=== PATIENT | male | born 1950 | race Caucasian/White ===

== ENCOUNTER 2018-04-09 18:51 | Outpatient (CLI) | payer SELFPAY | END 2018-04-09 18:52 | disposition critical access hospital (66) | LOC: EMS 18:51 | PROVIDERS: ATTEND Surgery | DX: R53.83 Other fatigue (principal); M54.9 Dorsalgia, unspecified | CPT/HCPCS: A0425; A0429 ==

== ENCOUNTER 2018-04-09 19:29 | Emergency (ER) | payer SELFPAY ==
--- NOTE | 2018-04-09 20:32 | ED Physician Documentation ---
PD HPI CHEST PAIN - Stated complaint Stated Complaint: BACK PAIN/WEAKNESS - Chief complaint Chief Complaint: General - History obtained from History obtained from: Patient - History of Present Illness Timing - onset: How many weeks ago (has had pain upper back for few weeks on and off. Worse the past 2 days in scapular area. Seen by PMD and referred to ER to evaluate for cardiac and lung.) Timing - onset during: No: Exertion Timing - details: Gradual onset, Waxing and waning Quality: Aching, Sharp Location: Other (left scapular area). No: Substernal, Left chest Radiation: Back Improved by: No: Rest Worsened by: Movement. No: Exertion, Eating Associated symptoms: Shortness of air. No: Diaphoresis, Nausea, Feeling faint / dizzy, General Weakness, Palpitations Similar symptoms before: Has not had sx before Recently seen: Clinic Review of Systems Constitutional: denies: Fever, Chills, Myalgias Nose: denies: Rhinorrhea / runny nose, Congestion Throat: denies: Sore throat Cardiac: denies: Chest pain / pressure (just in back), Palpitations Respiratory: denies: Dyspnea, Cough GI: denies: Abdominal Pain, Nausea, Vomiting Musculoskeletal: denies: Extremity pain, Extremity swelling Neurologic: denies: Generalized weakness, Focal weakness, Numbness, Near syncope PD PAST MEDICAL HISTORY - Past Medical History Past Medical History: Yes Cardiovascular: Hypertension - Past Surgical History Past Surgical History: Yes General: Appendectomy Ortho: Spine surgery - Present Medications Home Medications: Ambulatory Orders Medication Instructions Recorded Confirmed HYDROcod/ACETAM 5/325 [[place] 5/325] 1 tab PO Q6H PRN #15 tablet 04/09/18 Methocarbamol [Robaxin] 500 mg PO Q6H PRN #25 tablet 04/09/18 Naproxen [Naprosyn] 500 mg PO BID PRN #20 tablet 04/09/18 - Allergies Allergies/Adverse Reactions: Allergies Allergy/AdvReac Type Severity Reaction Status Date / Time No Known Drug Allergies Allergy Verified 04/09/18 19:43 - Social History Does the pt smoke?: No Smoking Status: Never smoker - Family History Family history: reports: CAD PD ED PE NORMAL - Vitals Vital signs reviewed: Yes - General General: Alert and oriented X 3, Well developed/nourished, Other (appears in pain upper back/ somewhat guarded ROM back and shoulder. ) - HEENT HEENT: Ears normal, Pharynx benign - Neck Neck: Supple, no meningeal sign, No bony TTP, No adenopathy - Cardiac Cardiac: RRR, No murmur - Respiratory Respiratory: Clear bilaterally - Abdomen Abdomen: Normal bowel sounds, Soft, Non tender - Male Male : Deferred - Rectal Rectal: Deferred - Back Back: No CVA TTP, No spinal TTP (has tender spot in muscle left medial scapular area. ) - Derm Derm: Normal color, Warm and dry - Extremities Extremities: No deformity, No tenderness to palpate, No edema, No calf tenderness / cord - Neuro Neuro: Alert and oriented X 3, No motor deficit, Normal speech Eye Opening: Spontaneous Motor: Obeys Commands Verbal: Oriented GCS Score: 15 Results - Vitals Vitals: Vital Signs - 24 hr 04/09/18 04/09/18 04/09/18 19:42 21:18 22:25 Heart Rate 101 H 92 90 Respiratory 20 20 18 Rate Blood Pressure 141/83 H 127/46 L 111/87 H O2 Saturation 93 92 97 04/09/18 23:00 Heart Rate 84 Respiratory 18 Rate Blood Pressure 140/95 H O2 Saturation 96 Oxygen O2 Source Room air - EKG (time done) 19:37 Rate: Rate (enter#) (105) Rhythm: Sinus tachycardia [place]: Normal Intervals: Normal DC QRS: Normal Ischemia: Normal ST segments. No: ST elevation c/w ischemia, ST depression - Labs Labs: Laboratory Tests 04/09/18 04/09/18 04/09/18 21:26 21:26 21:26 WBC 7.5 RBC 4.67 L Hgb 14.7 Hct 42.6 MCV 91.1 MCH 31.4 H MCHC 34.5 RDW 13.3 Plt Count 321 MPV 7.6 Neut # (Auto) 5.0 Lymph # (Auto) 1.5 [place] # (Auto) 0.9 Eos # (Auto) 0.1 Baso # (Auto) 0.1 Absolute Nucleated RBC 0.00 Nucleated RBC % 0.0 Sodium 136 Potassium 4.5 Chloride 102 Carbon Dioxide 26 Anion Gap 8.0 BUN 30 H Creatinine 1.2 Estimated GFR (MDRD) 60 L Glucose 97 Calcium 9.5 Magnesium 2.3 Total Bilirubin 1.0 AST 41 ALT 42 Alkaline Phosphatase 94 Troponin I < 0.04 B-Natriuretic Peptide Total Protein 8.2 Albumin 4.3 Globulin 3.9 Albumin/Globulin Ratio 1.1 Lipase 35 TSH 04/09/18 04/09/18 21:26 21:26 WBC RBC Hgb Hct MCV MCH MCHC RDW Plt Count MPV Neut # (Auto) Lymph # (Auto) [place] # (Auto) Eos # (Auto) Baso # (Auto) Absolute Nucleated RBC Nucleated RBC % Sodium Potassium Chloride Carbon Dioxide Anion Gap BUN Creatinine Estimated GFR (MDRD) Glucose Calcium Magnesium Total Bilirubin AST ALT Alkaline Phosphatase Troponin I B-Natriuretic Peptide 8 Total Protein Albumin Globulin Albumin/Globulin Ratio Lipase TSH 0.33 L - Rads (name of study) chest xray Radiology: Prelim report reviewed, EMP read contemporaneously (no acute process) PD MEDICAL DECISION MAKING - ED course Complexity details: reviewed results, considered differential (pain scapular area and tender to palpation. Trigger point injection done in medial scapular area. No rash nor sores. ), d/w patient - Sepsis Event Vital Signs: Vital Signs - 24 hr 04/09/18 04/09/18 04/09/18 19:42 21:18 22:25 Heart Rate 101 H 92 90 Respiratory 20 20 18 Rate Blood Pressure 141/83 H 127/46 L 111/87 H O2 Saturation 93 92 97 04/09/18 23:00 Heart Rate 84 Respiratory 18 Rate Blood Pressure 140/95 H O2 Saturation 96 Oxygen O2 Source Room air Departure - Departure Disposition: 01 Home, Self Care Clinical Impression: Pain of left scapula Fatigue Qualifiers: Fatigue type: unspecified Qualified Code(s): R53.83 - Other fatigue Condition: Stable Record reviewed to determine appropriate education?: Yes Instructions: ED Neck Back Pain General Follow-Up: Mat Lewis MD [Primary Care Provider] - Prescriptions: HYDROcod/ACETAM 5/325 [[place] 5/325] 1 tab PO Q6H PRN #15 tablet PRN Reason: Pain Methocarbamol [Robaxin] 500 mg PO Q6H PRN #25 tablet PRN Reason: Spasms Naproxen [Naprosyn] 500 mg PO BID PRN #20 tablet PRN Reason: Pain Comments: The pain in the back seems muscular. Treated with naproxen or ibuprofen 2-3 times a day and you can use Robaxin muscle relaxant. Add Ultram or hydrocodone as needed for pain. Recheck if not improved over the next few days. See if any other symptoms develop such as rash, fever, skin lesions etc. Regarding your general fatigue and some dyspnea, follow-up with your primary care if they want to pursue any screening tests for heart disease such as echocardiogram or stress test. There is no signs of heart attack or heart failure at this point but does not exclude general heart disease in general. Discharge Date/Time: 04/09/18 23:00
[2018-04-09] MEDS ORDERED: LIDOCAINE 2% 10 ML MDV SUBQ STA (21:17)
[2018-04-09] MEDS ORDERED: TRIAMCINOLONE 40 MG/ML VIAL IM STA (21:17)
[2018-04-09] MEDS ORDERED: ACETAMINOPHEN 325 MG TABLET PO STA (21:17)
[2018-04-09] MEDS ORDERED: traMADol 50 MG TABLET PO STA (21:17)
[2018-04-09 21:34] LABS: BASOPHILS # (AUTO) 0.1 10^3/uL (0.0-0.1); BASOPHILS % (AUTO) 1.6 %; EOSINOPHILS # (AUTO) 0.1 10^3/uL (0.0-0.7); EOSINOPHILS % (AUTO) 0.7 %; HGB - HEMOGLOBIN 14.7 g/dL (14.0-18.0); LYMPHOCYTES # (AUTO) 1.5 10^3/uL (1.5-3.5); LYMPHOCYTES % (AUTO) 19.5 %; MEAN CORPUSCULAR HEMOGLOBIN 31.4 pg (27.0-31.0); MEAN CORPUSCULAR HGB CONC 34.5 g/dL (32.0-36.0); MEAN CORPUSCULAR VOLUME 91.1 fL (80.0-94.0); MEAN PLATELET VOLUME 7.6 fL (7.4-11.4); MONOCYTES # (AUTO) 0.9 10^3/uL (0.0-1.0); MONOCYTES % (AUTO) 12.2 %; PLT - PLATELET COUNT 321 10^3/uL (130-450); RED BLOOD COUNT 4.67 10^6/uL (4.70-6.10); RED CELL DISTRIBUTION WIDTH 13.3 % (12.0-15.0); WHITE BLOOD COUNT 7.5 x10^3/uL (4.8-10.8)
[2018-04-09 21:41] LABS: ALBUMIN 4.3 g/dL (3.2-5.5); ALBUMIN/GLOBULIN RATIO 1.1 (1.0-2.2); CALCIUM 9.5 mg/dL (8.5-10.3); CREATININE 1.2 mg/dL (0.6-1.2); MAGNESIUM 2.3 mg/dL (1.7-2.8); TOTAL PROTEIN 8.2 g/dL (6.7-8.2)
[2018-04-09] MEDS ORDERED: HYDROcod/ACET 5/325 Prepack 4 PO STA (21:54)
[2018-04-09] MEDS ORDERED: KETOROLAC 60 MG/2 ML VIAL IVP STA (21:54)
--- NOTE | 2018-04-09 22:06 | XRAY Report ---
Procedure Date: 04/09/2018 Accession Number: [id number] / [id number] Procedure: XR - Chest 2 View X-Ray CPT Code: 18039 FULL RESULT: EXAM: CHEST RADIOGRAPHY EXAM DATE: 04/09/2018 09:34 PM. CLINICAL HISTORY: Chest pain left sided. COMPARISON: None. TECHNIQUE: 2 views. FINDINGS: Lungs/Pleura: No focal opacities evident. No pleural effusion. No pneumothorax. Normal volumes. Mediastinum: Heart and mediastinal contours are unremarkable. Other: None. IMPRESSION: Normal 2-view chest radiography. RADIA
[2018-04-09] MEDS ORDERED: MORPHINE 10 MG/ML VIAL IVP STA (22:17)
[2018-04-09] MEDS ORDERED: METHOCARBAMOL 500 MG TABLET PO STA (22:17)
[2018-04-09 23:29] VITALS: BP 140/95
== END 2018-04-09 23:00 | disposition home or self-care (01) ==
LOC: ED 19:29
DX: M25.512 Pain in left shoulder (principal); R53.83 Other fatigue; R06.00 Dyspnea, unspecified; R00.0 Tachycardia, unspecified; I10 Essential (primary) hypertension
CPT/HCPCS: 20552; 36415; 71046; 80053; 83690; 83735; 83880; 84443; 84484; 85025; 93005; 96374; 96375; 99283; A9270

== ENCOUNTER 2019-03-07 12:24 | Emergency (ER) | payer SELFPAY ==
[2019-03-07 13:56] LABS: BASOPHILS % (AUTO) 0.6 %; EOSINOPHILS % (AUTO) 0.5 %; HGB - HEMOGLOBIN 15.9 g/dL (14.0-18.0); LYMPHOCYTES # (AUTO) 1.7 10^3/uL (1.5-3.5); LYMPHOCYTES % (AUTO) 23.2 %; MEAN CORPUSCULAR HEMOGLOBIN 30.6 pg (27.0-31.0); MEAN CORPUSCULAR HGB CONC 33.9 g/dL (32.0-36.0); MEAN CORPUSCULAR VOLUME 90.4 fL (80.0-94.0); MEAN PLATELET VOLUME 7.6 fL (7.4-11.4); MONOCYTES # (AUTO) 0.9 10^3/uL (0.0-1.0); MONOCYTES % (AUTO) 11.6 %; NEUTROPHILS # (AUTO) 4.8 10^3/uL (1.5-6.6); NEUTROPHILS % (AUTO) 64.1 %; PLT - PLATELET COUNT 290 10^3/uL (130-450); RED CELL DISTRIBUTION WIDTH 13.7 % (12.0-15.0); WHITE BLOOD COUNT 7.5 x10^3/uL (4.8-10.8)
--- NOTE | 2019-03-07 13:59 | ED Physician Documentation ---
History of Present Illness - Stated complaint Stated Complaint: RT PINKIE SWELLING/REDNESS - Chief complaint Chief Complaint: Trauma Ext - History obtained from History obtained from: Patient - History of Present Illness Timing: How many days ago (5) Pain level max: 6 Pain level now: 5 Improved by: rest Worsened by: movement - Additonal information Additional information: Pt is right handed. Swelling and pain to the right fifth digit. The flexor aspect of the proximal phalanx is involved. Doesn't recall any injury. Review of Systems Constitutional: denies: Fever, Chills GI: denies: Vomiting Skin: denies: Rash PD PAST MEDICAL HISTORY - Past Medical History Cardiovascular: Hypertension - Past Surgical History Past Surgical History: Yes General: Appendectomy Ortho: Spine surgery - Present Medications Home Medications: Ambulatory Orders Medication Instructions Recorded Confirmed HYDROcod/ACETAM 5/325 [[place] 5/325] 1 tab PO Q6H PRN #15 tablet 04/09/18 Methocarbamol [Robaxin] 500 mg PO Q6H PRN #25 tablet 04/09/18 Naproxen [Naprosyn] 500 mg PO BID PRN #20 tablet 04/09/18 Cephalexin [Keflex] 500 mg PO Q6H #28 capsule 03/07/19 Indomethacin 25 mg PO BID PRN #20 capsule 03/07/19 - Allergies Allergies/Adverse Reactions: Allergies Allergy/AdvReac Type Severity Reaction Status Date / Time No Known Drug Allergies Allergy Verified 03/07/19 12:51 - Social History Does the pt smoke?: No Smoking Status: Never smoker PD ED PE NORMAL - Vitals Vital signs reviewed: Yes - General General: Alert and oriented X 3, No acute distress - HEENT HEENT: Moist mucous membranes - Neck Neck: Supple, no meningeal sign - Cardiac Cardiac: RRR - Respiratory Respiratory: No respiratory distress, Clear bilaterally - Derm Derm: Warm and dry - Extremities Extremities: Other (R 5th digit - swelling, erythema to the palmar aspect of the prox phalanx 5th digit. NVI. Limited ROM 2/2 pain. No tendernses over the palm. ) - Neuro Neuro: Alert and oriented X 3 - Psych Psych: Normal mood, Normal affect Results - Vitals Vitals: Vital Signs - 24 hr 03/07/19 03/07/19 12:49 16:31 Temperature 36.9 C Heart Rate 102 H 98 Respiratory 18 16 Rate Blood Pressure 155/107 H 170/100 H O2 Saturation 97 100 Oxygen O2 Source Room air - Labs Labs: Laboratory Tests 03/07/19 03/07/19 03/07/19 13:49 13:49 13:49 WBC 7.5 RBC 5.20 Hgb 15.9 Hct 47.1 MCV 90.4 MCH 30.6 MCHC 33.9 RDW 13.7 Plt Count 290 MPV 7.6 Neut # (Auto) 4.8 Lymph # (Auto) 1.7 [place] # (Auto) 0.9 Eos # (Auto) 0.0 Baso # (Auto) 0.0 Absolute Nucleated RBC 0.00 Nucleated RBC % 0.0 ESR 7 Sodium 136 Potassium 4.1 Chloride 105 Carbon Dioxide 21 Anion Gap 10.0 BUN 22 H Creatinine 0.8 Estimated GFR (MDRD) 96 Glucose 108 H Calcium 9.5 C-Reactive Protein < 1.0 - Rads (name of study) Right finger x-ray Radiology: Prelim report reviewed, EMP read contemporaneously, See rad report (Right fifth digit no acute abnormality) PD MEDICAL DECISION MAKING - ED course Complexity details: reviewed results, re-evaluated patient, considered differential, d/w patient, d/w sr risk management consultant ED course: 69-year-old male with a possibly infected right fifth digit. Possible flexor tenosynovitis. No tenderness in the palmar aspect of the hand. Consult to Dr. Esparza, orthopedics who came and evaluated the patient. He recommends starting on antibiotics and recheck. Patient counseled regarding signs and symptoms for which I believe and urgent re-evaluation would be necessary. Patient with good understanding of and agreement to plan and is comfortable going home at this time This document was made in part using voice recognition software. While efforts are made to proofread this document, sound alike and grammatical errors may occur. Departure - Departure Disposition: 01 Home, Self Care Clinical Impression: Cellulitis of finger, right Condition: Good Instructions: ED Infec Skin Cellulitis Follow-Up: Mat Lewis MD [Primary Care Provider] - Mahesh Esparza MD [Provider Admit Priv/Credential] - Prescriptions: Cephalexin [Keflex] 500 mg PO Q6H #28 capsule Indomethacin 25 mg PO BID PRN #20 capsule PRN Reason: finger pain Comments: Return tomorrow for a recheck. I will be here about noon until [address] Esparza is on this weekend as well. Start antibiotics today as well as the Indocin. Return sooner if you worsen. Discharge Date/Time: 03/07/19 16:32
--- NOTE | 2019-03-07 14:19 | XRAY Report ---
Reason: R 5th digit swelling Procedure Date: 03/07/2019 Accession Number: [id number] / [id number] Procedure: XR - Finger(s) RT CPT Code: FULL RESULT: EXAM: RIGHT/LEFT 1st/2nd/3rd/4th/5th DIGIT RADIOGRAPHY EXAM DATE: 03/07/2019 02:06 PM. CLINICAL HISTORY: Right fifth finger deformity and swelling. COMPARISON: None. TECHNIQUE: 3 views. FINDINGS: Bones: No acute fracture. Angulated deformity of fifth finger with ulnar deviation, mainly at the PIP joint, perhaps from old healed fracture. Joints: Normal. No subluxations. Soft Tissues: Normal. No soft tissue swelling. IMPRESSION: No acute abnormality. See above comments regarding chronic finding. RADIA
[2019-03-07 14:33] LABS: BUN - BLOOD UREA NITROGEN 22 mg/dL (6-20); CALCIUM 9.5 mg/dL (8.5-10.3); CARBON DIOXIDE - CO2 21 mmol/L (21-32); CHLORIDE 105 mmol/L (101-111); CREATININE 0.8 mg/dL (0.6-1.2); GFR - MDRD 96 (>89); GLUCOSE 108 mg/dL (70-100); SODIUM 136 mmol/L (135-145)
[2019-03-07 14:34] LABS: CRP - C-REACTIVE PROTEIN < 1.0 mg/dL (0-1.0)
[2019-03-07] MEDS ORDERED: cephALEXin 250 MG CAPSULE PO STA (16:13)
[2019-03-07] MEDS ORDERED: INDOMETHACIN 25 MG CAPSULE PO STA (16:13)
[2019-03-07 16:32] VITALS: BP 170/100
--- NOTE | 2019-03-07 16:35 | PROVIDER PROGRESS NOTE ---
Assessment/Plan - Problem List (1) Cellulitis of finger, right Assessment/Plan: Doubt suppurrative flexor tenosynovitis. ?Gout? PLAN: Ice prn, antibiotics, and Indocin. Reevaluate in ED Sta with Dr. Jones. Veronica note dictated. - Lab Result Fish Bone Diagrams: 03/07/19 13:49 03/07/19 13:49 Objective Vital Signs: Vital Signs - 24 hr 03/07/19 03/07/19 12:49 16:31 Temperature 36.9 C Heart Rate 102 H 98 Respiratory 18 16 Rate Blood Pressure 155/107 H 170/100 H O2 Saturation 97 100 Oxygen O2 Source Room air - Results Results: Laboratory Results WBC 7.5 x10^3/uL (4.8-10.8) 03/07/19 13:49 RBC 5.20 10^6/uL (4.70-6.10) 03/07/19 13:49 Hgb 15.9 g/dL (14.0-18.0) 03/07/19 13:49 Hct 47.1 % (42.0-52.0) 03/07/19 13:49 MCV 90.4 fL (80.0-94.0) 03/07/19 13:49 MCH 30.6 pg (27.0-31.0) 03/07/19 13:49 MCHC 33.9 g/dL (32.0-36.0) 03/07/19 13:49 RDW 13.7 % (12.0-15.0) 03/07/19 13:49 Plt Count 290 10^3/uL (130-450) 03/07/19 13:49 MPV 7.6 fL (7.4-11.4) 03/07/19 13:49 Neut # (Auto) 4.8 10^3/uL (1.5-6.6) 03/07/19 13:49 Lymph # (Auto) 1.7 10^3/uL (1.5-3.5) 03/07/19 13:49 [place] # (Auto) 0.9 10^3/uL (0.0-1.0) 03/07/19 13:49 Eos # (Auto) 0.0 10^3/uL (0.0-0.7) 03/07/19 13:49 Baso # (Auto) 0.0 10^3/uL (0.0-0.1) 03/07/19 13:49 Absolute Nucleated RBC 0.00 x10^3/uL 03/07/19 13:49 Nucleated RBC % 0.0 /100WBC 03/07/19 13:49 ESR 7 mm/Hr (0-20) 03/07/19 13:49 Sodium 136 mmol/L (135-145) 03/07/19 13:49 Potassium 4.1 mmol/L (3.5-5.0) 03/07/19 13:49 Chloride 105 mmol/L (101-111) 03/07/19 13:49 Carbon Dioxide 21 mmol/L (21-32) 03/07/19 13:49 Anion Gap 10.0 (6-13) 03/07/19 13:49 BUN 22 mg/dL (6-20) H 03/07/19 13:49 Creatinine 0.8 mg/dL (0.6-1.2) 03/07/19 13:49 Estimated GFR (MDRD) 96 (>89) 03/07/19 13:49 Glucose 108 mg/dL (70-100) H 03/07/19 13:49 Calcium 9.5 mg/dL (8.5-10.3) 03/07/19 13:49 C-Reactive Protein < 1.0 mg/dL (0-1.0) 03/07/19 13:49 ABX Reporting Has patient been on IV antibiotics over the past 48 hours?: No
--- NOTE | 2019-03-07 16:50 | CONSULTATION NOTE ---
DATE OF SERVICE: 03/07/2019 Physician: Mahesh Esparza MD REFERRING PHYSICIAN: Dr. Oscar Bahena of Emergency Room Department. CHIEF COMPLAINT: "My right little finger is sore." HISTORY OF PRESENT ILLNESS: Korey Tracy is a 69-year-old right-handed, male who present s to the emergency room with a 5-day history of swelling and redness to his right little finger. The patient denies any preceding trauma. There were no wounds or penetrating trauma either. The patien t denies having a problem with infections or swelling of the finger in the past. Remote history of a probable finger fracture in the past that did heal in the malaligned position. The patient also den ies any recent fevers or chills. No distal weakness or numbness in the finger. No known history for gout or diabetes. Speaking with the patient today. He has noted a slight decrease in swelling in the digits. Two days ago, he noted swelling involving the entire digit. Now it only seems to involve the proximal segmen t. PHYSICAL EXAMINATION: The patient was afebrile on presentation. Examination of his right small fing er shows an obvious angulatory deformity near the PIP joint of the digit (a chronic finding). The pa tient has some mild swelling and erythema in the proximal segment of the digit. No fluctuance or pur ulence or abscess appreciated on inspection. He has some generalized tenderness in the area of swell ing and erythema. Neurovascular appears to be intact distally. He has active flexion and extension of the DIP joint and PIP joint of the digits, albeit with some mild restriction at the PIP joint seco ndary to the swelling. There is no lymphangitis in the hand or forearm. No swelling, redness or ten derness on palpation about the MCP joint of the ring finger, or proximal to this region. LABORATORY: The patient had a white count of 7500. Sedimentation rate of 7 and C-reactive protein o f less than 1. IMAGING: X-rays show evidence of what appears to be a malunion of a proximal phalangeal fracture to this finger in the past. ASSESSMENT: Possible cellulitis to the right little finger - possibly could be the result of a gouty flare up to the digit. ?Early suppurative flexor tenosynovitis. PLAN: I discussed the options with Dr. Bahena and the patient today. The patient appears very relia ble and with evidence of clinical improvement in the swelling over the last several days as well as t he fact he is afebrile with a normal white count and no inflammatory markers, we have decided to tyson t this as an outpatient. We will start him empirically on antibiotics (Keflex) along with Indocin to see if this will improve his inflammation to the finger. He has agreed to come back to the emergenc y room tomorrow when Dr. Moore is still here for a followup clinic evaluation. Dr. Moore will re contact me for consultation as needed at that time. TD: 03/07/2019 16:35
== END 2019-03-07 16:32 | disposition home or self-care (01) ==
LOC: ED 12:24
DX: L03.011 Cellulitis of right finger (principal); I10 Essential (primary) hypertension
CPT/HCPCS: 36415; 73140; 80048; 85025; 85651; 86140; 99283; A9270

== ENCOUNTER 2019-06-09 12:21 | Emergency (ER) | payer SELFPAY ==
--- NOTE | 2019-06-09 13:16 | ED Physician Documentation ---
PD [facility] HEENT - Stated complaint Stated Complaint: EAR PX - Chief complaint Chief Complaint: General - History obtained from History obtained from: Patient - History of Present Illness Timing - onset: How many weeks ago (has noted decreased hearing in both ears for the past week, and is now having pain in the right ear. No drainage.) Timing - duration: Weeks (1) Timing - details: Gradual onset Location: Right ear, Left ear, Sinuses (feel congested). No: Throat Associated symptoms: Congestion. No: Fever, Facial swelling, Cough Similar symptoms before: Has not had sx before Recently seen: Not recently seen (tried to get appt with PMD in [place], but no appt until couple days from now.) Review of Systems Constitutional: denies: Fever, Chills Ears: reports: Loss of hearing, Ear pain. denies: Drainage/discharge Nose: reports: Congestion, Sinus pressure / pain. denies: Rhinorrhea / runny nose Throat: denies: Sore throat Respiratory: denies: Cough PD PAST MEDICAL HISTORY - Past Medical History Past Medical History: No Cardiovascular: Hypertension Respiratory: None Neuro: None Endocrine/Autoimmune: None GI: None : None HEENT: None Psych: None Musculoskeletal: None Derm: None - Past Surgical History Past Surgical History: Yes General: Appendectomy Ortho: Spine surgery - Present Medications Home Medications: Ambulatory Orders Medication Instructions Recorded Confirmed HYDROcod/ACETAM 5/325 [[place] 5/325] 1 tab PO Q6H PRN #15 tablet 04/09/18 Methocarbamol [Robaxin] 500 mg PO Q6H PRN #25 tablet 04/09/18 Naproxen [Naprosyn] 500 mg PO BID PRN #20 tablet 04/09/18 Cephalexin [Keflex] 500 mg PO Q6H #28 capsule 03/07/19 Indomethacin 25 mg PO BID PRN #20 capsule 03/07/19 Neomycin/Polymyx/Hc Otic Drops 3 drops EACHEAR QID #1 bottle 06/09/19 [Cortisporin Ear Susp] Sulfamethox/Trimeth 800/160 1 each PO BID #14 tablet 06/09/19 [Bactrim Ds 800/160] dexAMETHasone [Decadron] 4 mg PO DAILY #5 tablet 06/09/19 - Allergies Allergies/Adverse Reactions: Allergies Allergy/AdvReac Type Severity Reaction Status Date / Time No Known Drug Allergies Allergy Verified 06/09/19 12:33 - Social History Does the pt smoke?: No Smoking Status: Never smoker Does the pt drink ETOH?: Yes Does the pt have substance abuse?: No - Immunizations Immunizations are current?: Yes - POLST Patient has POLST: No PD ED PE NORMAL - Vitals Vital signs reviewed: Yes - General General: Alert and oriented X 3, No acute distress, Well developed/nourished - HEENT HEENT: Pharynx benign. No: Ears normal (left with wall of cerumen (impacted). right with mild wax in canal, and the TM with fluid and blood behind it, stiff TM/bulging, no perforation. The medial canal with redness and swelling as well. Outer canal normal. ) - Neck Neck: Supple, no meningeal sign, No adenopathy - Cardiac Cardiac: RRR, No murmur - Respiratory Respiratory: Clear bilaterally Results - Vitals Vitals: Vital Signs - 24 hr 06/09/19 06/09/19 06/09/19 12:27 13:07 15:00 Temperature 37.0 C 36.8 C Heart Rate 93 86 73 Respiratory 20 20 16 Rate Blood Pressure 176/105 H 145/116 H 157/98 H O2 Saturation 96 97 98 Oxygen O2 Source Room air - Labs Labs: Laboratory Tests 06/09/19 06/09/19 06/09/19 14:07 14:07 14:07 WBC 6.1 RBC 4.87 Hgb 14.7 Hct 44.7 MCV 91.8 MCH 30.2 MCHC 32.9 RDW 12.9 Plt Count 274 MPV 9.3 Neut # (Auto) 3.9 Lymph # (Auto) 1.5 [place] # (Auto) 0.7 Eos # (Auto) 0.0 Baso # (Auto) 0.0 Absolute Nucleated RBC 0.00 Nucleated RBC % 0.0 ESR 9 Sodium 139 Potassium 3.9 Chloride 104 Carbon Dioxide 26 Anion Gap 9.0 BUN 20 Creatinine 0.7 Estimated GFR (MDRD) 112 Glucose 103 H Calcium 9.4 Magnesium 2.0 Total Bilirubin 0.6 AST 32 ALT 42 Alkaline Phosphatase 71 Total Protein 7.8 Albumin 3.9 Globulin 3.9 Albumin/Globulin Ratio 1.0 Lipase 25 TSH 06/09/19 14:07 WBC RBC Hgb Hct MCV MCH MCHC RDW Plt Count MPV Neut # (Auto) Lymph # (Auto) [place] # (Auto) Eos # (Auto) Baso # (Auto) Absolute Nucleated RBC Nucleated RBC % ESR Sodium Potassium Chloride Carbon Dioxide Anion Gap BUN Creatinine Estimated GFR (MDRD) Glucose Calcium Magnesium Total Bilirubin AST ALT Alkaline Phosphatase Total Protein Albumin Globulin Albumin/Globulin Ratio Lipase TSH 0.80 PD MEDICAL DECISION MAKING - ED course Complexity details: re-evaluated patient (left TM seen after wax cleared and the medial canal red with inflammation, TM is punctate with some swelling too. ), considered differential, d/w patient Departure - Departure Disposition: 01 Home, Self Care Clinical Impression: Otitis media Qualifiers: Otitis media type: suppurative Chronicity: acute Laterality: right Recurrence: recurrent Spontaneous tympanic membrane rupture: without spontaneous rupture Qualified Code(s): H66.004 - Acute suppurative otitis media without spontaneous rupture of ear drum, recurrent, right ear Otitis externa Qualifiers: Otitis externa type: diffuse Chronicity: acute Laterality: bilateral Qualified Code(s): H60.313 - Diffuse otitis externa, bilateral Cerumen impaction Qualifiers: Laterality: left Qualified Code(s): H61.22 - Impacted cerumen, left ear Fatigue Qualifiers: Fatigue type: unspecified Qualified Code(s): R53.83 - Other fatigue Condition: Stable Record reviewed to determine appropriate education?: Yes Instructions: ED Otitis Media Acute Adult, ED Otitis Externa Prescriptions: dexAMETHasone [Decadron] 4 mg PO DAILY #5 tablet Neomycin/Polymyx/Hc Otic Drops [Cortisporin Ear Susp] 3 drops EACHEAR QID #1 bottle Sulfamethox/Trimeth 800/160 [Bactrim Ds 800/160] 1 each PO BID #14 tablet Comments: The left ear canal was blocked by earwax. It is now removed with the irrigation. Behind it though was in infection of the ear canal and that can be treated with the antibiotic and anti-inflammatory eardrops 4 times a day for the next 2 or 3 days. The right ear shows some inflammation of the ear canal as well so use the eardrops 4 times a day for 5 or 6 days. There is also infection behind the e ardrum so use the Decadron and Bactrim antibiotic to help with that. Recheck your ears with your primary care in about 1-1/2 to 2 weeks to ensure they have healed up well completely. Otherwise follow-up with your primary care regarding the general tiredness and aches. We did do basic blood tests here that initially are looking okay but we will have the results of all of them right away. Your primary care can follow- up on the results when you see her. Discharge Date/Time: 06/09/19 15:03
[2019-06-09] MEDS ORDERED: SULFAMETH/TRIMETH DS 800/160 MG TABLET PO STA (13:51)
[2019-06-09] MEDS ORDERED: DEXAMETHASONE 10 MG/ML VIAL PO STA (13:51)
[2019-06-09] MEDS ORDERED: CHERRY SYRUP 10 ML UDC PO ONE (13:51)
[2019-06-09 14:17] LABS: BASOPHILS % (AUTO) 0.3 %; EOSINOPHILS % (AUTO) 0.3 %; HGB - HEMOGLOBIN 14.7 g/dL (14.0-18.0); LYMPHOCYTES # (AUTO) 1.5 10^3/uL (1.5-3.5); LYMPHOCYTES % (AUTO) 24.3 %; MEAN CORPUSCULAR HEMOGLOBIN 30.2 pg (27.0-31.0); MEAN CORPUSCULAR HGB CONC 32.9 g/dL (32.0-36.0); MEAN CORPUSCULAR VOLUME 91.8 fL (80.0-94.0); MEAN PLATELET VOLUME 9.3 fL (7.4-11.4); MONOCYTES # (AUTO) 0.7 10^3/uL (0.0-1.0); MONOCYTES % (AUTO) 10.9 %; NEUTROPHILS # (AUTO) 3.9 10^3/uL (1.5-6.6); NEUTROPHILS % (AUTO) 63.9 %; PLT - PLATELET COUNT 274 10^3/uL (130-450); RED BLOOD COUNT 4.87 10^6/uL (4.70-6.10); RED CELL DISTRIBUTION WIDTH 12.9 % (12.0-15.0); WHITE BLOOD COUNT 6.1 x10^3/uL (4.8-10.8)
[2019-06-09 14:29] LABS: ALBUMIN 3.9 g/dL (3.2-5.5); BILIRUBIN,TOTAL 0.6 mg/dL (0.2-1.0); CALCIUM 9.4 mg/dL (8.5-10.3); CREATININE 0.7 mg/dL (0.6-1.2); TOTAL PROTEIN 7.8 g/dL (6.7-8.2)
[2019-06-09 15:02] VITALS: BP 157/98
== END 2019-06-09 15:03 | disposition home or self-care (01) ==
LOC: ED 12:21
DX: H66.004 Acute suppurative otitis media without spontaneous rupture of ear drum, recurrent, right ear (principal); H60.313 Diffuse otitis externa, bilateral; H61.22 Impacted cerumen, left ear; R53.83 Other fatigue; I10 Essential (primary) hypertension
CPT/HCPCS: 36415; 69209; 82652; 83690; 83735; 85651; 99283; 99284; A9270; 80053; 84443; 85025; 96365; 99211

== ENCOUNTER 2020-08-07 07:00 | Outpatient (CLI) | payer SELFPAY ==
--- NOTE | 2020-08-07 13:02 | XRAY Report ---
PROCEDURE: Knee 3 View RT INDICATIONS: CONTUSION OF RIGHT KNEE TECHNIQUE: views of the knee(s) were acquired. COMPARISON: None. FINDINGS: Bones: No fractures or dislocations. No suspicious bony lesions. Mild tricompartmental articular o steophyte formation. Soft tissues: Small knee joint effusion. Chondrocalcinosis within the medial and lateral compartments . IMPRESSION: 1. Osteoarthritis. 2. Chondrocalcinosis. 3. Small knee joint effusion. 4. No acute fracture. No osseous lesion. If symptoms and/or clinical suspicion for pathology continue , further assessment with repeat plain films, or advanced imaging (e.g., CT, MRI, or bone scan) is re commended for further assessment. Reviewed by: Ravin Lomas MD on 08/07/2020 1:01 PM [facility] Approved by: Ravin Lomas MD on 08/07/2020 1:01 PM [facility] Station ID: [id number]
== END 2020-08-07 23:59 | disposition home or self-care (01) ==
LOC: DI.S 07:00
PROVIDERS: ATTEND Emergency Medicine
DX: M17.11 Unilateral primary osteoarthritis, right knee (principal); M11.261 Other chondrocalcinosis, right knee; M25.461 Effusion, right knee

== ENCOUNTER 2020-08-18 07:27 | Outpatient (CLI) | payer SELFPAY ==
[2020-08-18 07:30] LABS: BASOPHILS % (AUTO) 0.3 %; EOSINOPHILS # (AUTO) 0.1 10^3/uL (0.0-0.7); EOSINOPHILS % (AUTO) 1.2 %; HGB - HEMOGLOBIN 14.2 g/dL (14.0-18.0); LYMPHOCYTES % (AUTO) 28.1 %; MEAN CORPUSCULAR HEMOGLOBIN 31.2 pg (27.0-31.0); MEAN CORPUSCULAR HGB CONC 32.9 g/dL (32.0-36.0); MEAN CORPUSCULAR VOLUME 94.7 fL (80.0-94.0); MEAN PLATELET VOLUME 9.5 fL (7.4-11.4); MONOCYTES # (AUTO) 0.7 10^3/uL (0.0-1.0); MONOCYTES % (AUTO) 9.8 %; NEUTROPHILS # (AUTO) 4.4 10^3/uL (1.5-6.6); NEUTROPHILS % (AUTO) 60.3 %; PLT - PLATELET COUNT 334 10^3/uL (130-450); RED BLOOD COUNT 4.55 10^6/uL (4.70-6.10); RED CELL DISTRIBUTION WIDTH 12.8 % (12.0-15.0); WHITE BLOOD COUNT 7.2 x10^3/uL (4.8-10.8)
[2020-08-18 07:49] LABS: ALBUMIN 4.4 g/dL (3.2-5.5); ALBUMIN/GLOBULIN RATIO 1.1 (1.0-2.2); ALKALINE PHOSPHATASE 75 IU/L (42-121); ALT ALANINE AMINOTRANSFERASE 59 IU/L (10-60); AST ASPARTATE AMINOTRANSFERASE 35 IU/L (10-42); BILIRUBIN,TOTAL 0.7 mg/dL (0.2-1.0); BUN - BLOOD UREA NITROGEN 25 mg/dL (6-20); CALCIUM 10.1 mg/dL (8.5-10.3); CARBON DIOXIDE - CO2 28 mmol/L (21-32); CHLORIDE 99 mmol/L (101-111); CHOL/HDL RATIO 4.1 (<5.0); CHOLESTEROL 148 mg/dL; CREATININE 1.1 mg/dL (0.6-1.2); GLUCOSE 113 mg/dL (70-100); HDL CHOLESTEROL 36 mg/dL; LDL CHOLESTEROL,CALCULATED 98 mg/dL; LDL/HDL RATIO 2.7 (<3.6); SODIUM 138 mmol/L (135-145); TOTAL PROTEIN 8.4 g/dL (6.7-8.2); VLDL CHOLESTEROL 14 mg/dL
[2020-08-18 09:39] LABS: HEMOGLOBIN A1c% 5.5 % (4.27-6.07)
--- NOTE | 2020-08-18 13:01 | CARDIAC PROCEDURE NOTE ---
DATE OF SERVICE: 08/18/2020 Physician: Lynne Monge MD, [facility] INDICATIONS: Fatigue, shortness of breath, hypertension. CARDIAC RISK FACTORS: Male gender, hypertension, morbid obesity, elevated cholesterol. DESCRIPTION OF PROCEDURE: After signing informed consent, the patient underwent a Nicola-protocol treadmill stress test with Echo imaging at rest and post- exercise. RESTING HEART RATE: 103. PEAK HEART RATE:162 (107% predicted maximum heart rate for age). RESTING BLOOD PRESSURE: 149/96. PEAK BLOOD PRESSURE: 194/101. The patient exercised for 4 minutes and 41 seconds on a Nicola-protocol treadmill stress test. He achieved a peak heart rate of 162 (107% PMHR) and 6.7 METs. The patient had mild to moderate shortness of breath. He had no chest pain complaints. He had fatigue in his legs he stated. His perceived exertion was rated at 13/20 on the Latrice scale at peak. Oxygen saturation was 100% at rest and dropped to 88% with exertion, and recovered to 92% before stopping exercise. RESTING EKG: Sinus tachycardia, left atrial enlargement, PVC present, PAC present. EKG AT PEAK: A ventricular couplet is seen. No ischemic ST segment depressions or T-wave changes occurred. SUMMARY: 1. Abnormal resting EKG since tachycardia is present at rest. And when patient stood from his seated to standing position, the heart rate daisy to 123 before walking. 2. Oxygen desaturation occurs with exercise. 3. Poor exercise tolerance. 4. No ischemic changes by electrocardiogram criteria occurred during this treadmill stress test. 5. Echo images were reported separately and showed: At rest the LVEF is low- normal at 50%, and there is mild maciel-septal hypokinesis. After exercise, the maciel-septal hypokinesis persists. IMPRESSION: 1. Marked tachycardia is present at rest. 2. Oxygen desaturation occurs with exercise. 3. Abnormal wall motion at rest and persists after exercise, of the maciel- septal wall, suggesting old CA or abnormal wall motion can be due to conduction abnormality. LVEF 50%. RECOMMENDATIONS: 1. Cardiology evaluation [place] for possible coronary angiogram. 2. Aggressive risk factor management. 3. Consider pulmonary evaluation as well. cc: Taylor Huggins PA-C TD: 08/18/2020 11:04 [facility]
== END 2020-08-18 07:28 | disposition home or self-care (01) ==
LOC: DI 07:27
PROVIDERS: ATTEND Physician Assistant
DX: R94.31 Abnormal electrocardiogram [ECG] [EKG] (principal); R00.0 Tachycardia, unspecified; I10 Essential (primary) hypertension; F90.9 Attention-deficit hyperactivity disorder, unspecified type; Z79.899 Other long term (current) drug therapy; E66.01 Morbid (severe) obesity due to excess calories; E78.00 Pure hypercholesterolemia, unspecified
CPT/HCPCS: 36415; 80053; 80061; 83036; 83721; 84443; 85025; 93350

== ENCOUNTER 2023-08-24 21:05 | Outpatient (CLI) | payer SELFPAY | END 2023-08-24 23:59 | disposition left against medical advice (07) | LOC: EMS 21:05 | DX: F10.129 Alcohol abuse with intoxication, unspecified (principal) ==

== ENCOUNTER 2024-03-22 15:15 | Emergency (ER) | payer SELFPAY ==
--- NOTE | 2024-03-22 16:01 | ED Physician Documentation ---
PD HPI MHE - Stated complaint Stated Complaint: MEGHANA - Chief complaint Chief Complaint: MHE - Additional information Additional information: 74-year-old male presents emergency department via EMS after being MEGHANA'd by the police. There were multiple phone calls to 911 for patient acting belligerent in public as well as flashing other civilians. The police responded to this incident and patient ended up having a ground-level fall hitting the back of his head on concrete. Because the police were worried about him not being safe enough to make these decisions of when to go to the hospital as patient was quite intoxicated and found multiple beer cans around patient they decided to MEGHANA him and bring him into the hospital for further evaluation. He is agitated at this point he has been directable but says that he does not want to be here. He denies any pain he does have a small superficial laceration to the posterior aspect of his head. PD PAST MEDICAL HISTORY - Past Medical History Past Medical History: Yes Cardiovascular: Hypertension Respiratory: None Neuro: None Endocrine/Autoimmune: None GI: None : None HEENT: None Psych: None Musculoskeletal: None Derm: None - Past Surgical History Past Surgical History: Yes General: Appendectomy Ortho: Spine surgery - Present Medications Home Medications: Ambulatory Orders Medication Instructions Recorded Confirmed Home Medications Unobtainable 03/22/24 03/22/24 [HOME MEDICATIONS UNOBTAINABLE] - Allergies Allergies/Adverse Reactions: Allergies Allergy/AdvReac Type Severity Reaction Status Date / Time No Known Drug Allergies Allergy Verified 03/22/24 15:44 - Social History Does the pt smoke?: No Smoking Status: Never smoker Does the pt drink ETOH?: Yes Does the pt have substance abuse?: No - Immunizations Immunizations are current?: Yes - POLST Patient has POLST: No PD ED PE NORMAL - Vitals Vital signs reviewed: Yes - General General: Other (Superficial abrasion to the posterior scalp) - HEENT HEENT: Atraumatic, PERRL, EOMI - Neck Neck: Supple, no meningeal sign - Cardiac Cardiac: RRR - Respiratory Respiratory: No respiratory distress - Abdomen Abdomen: Normal bowel sounds - Back Back: No CVA TTP, No spinal TTP - Derm Derm: Normal color, Warm and dry, No rash - Extremities Extremities: No deformity, No edema - Neuro Neuro: Alert and oriented X 3, 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 No: Depressed, Suicidal, Homicidal, Tearful, Withdrawn Results - Vitals Vitals: Vital Signs - 24 hr 03/22/24 03/22/24 15:31 20:15 Temperature 36.6 C 36.9 C Heart Rate 89 100 Respiratory 20 16 Rate Blood Pressure 144/73 H 138/95 H O2 Saturation 94 96 Oxygen O2 Source Room air - Labs Labs: Laboratory Tests 03/22/24 03/22/24 03/22/24 15:30 16:20 16:20 WBC 6.4 RBC 4.84 Hgb 14.2 Hct 44.2 MCV 91.3 MCH 29.3 MCHC 32.1 RDW 12.8 Plt Count 293 MPV 9.8 Neut # (Auto) 3.8 Lymph # (Auto) 2.0 Cataño # (Auto) 0.6 Eos # (Auto) 0.0 Baso # (Auto) 0.0 Absolute Nucleated RBC 0.00 Nucleated RBC % 0.0 Sodium 136 Potassium 4.0 Chloride 101 Carbon Dioxide 22 Anion Gap 13.0 BUN 16 Creatinine 0.9 Estimated GFR (MDRD) 83 L Glucose 102 Calcium 10.3 Magnesium 1.9 Total Bilirubin 0.5 AST 33 ALT 43 Alkaline Phosphatase 110 Total Creatine Kinase 125 Total Protein 8.4 Albumin 4.5 Globulin 3.9 Albumin/Globulin Ratio 1.2 Lipase 22 TSH 0.44 Urine Color YELLOW Urine Clarity CLEAR Urine pH 5.5 Ur Specific [place] <=1.005 Urine Protein NEGATIVE Urine Glucose (UA) NEGATIVE Urine Ketones NEGATIVE Urine Occult Blood NEGATIVE Urine Nitrite NEGATIVE Urine Bilirubin NEGATIVE Urine Urobilinogen 0.2 (NORMAL) Ur Leukocyte Esterase NEGATIVE Ur Microscopic Review NOT INDICATED Urine Culture Comments NOT INDICATED Salicylates < 1.5 Urine Opiates Screen NEGATIVE Ur Buprenorphine Scrn NEGATIVE Ur Oxycodone Screen NEGATIVE Urine Methadone Screen NEGATIVE Acetaminophen 0.2 Ur Barbiturates Screen NEGATIVE Ur Tricyclics Screen NEGATIVE Ur Phencyclidine Scrn NEGATIVE Ur Amphetamine Screen NEGATIVE U Methamphetamines Scrn NEGATIVE U Benzodiazepines Scrn NEGATIVE Urine Cocaine Screen NEGATIVE U Cannabinoids Screen NEGATIVE Ur Drug Screen Comment CUTOFF CONC BELOW: Ethyl Alcohol 260.0 - Rads (name of study) Head CT without Relevant Findings:: Final report received, EMP independent interpretation of test, Other (No intracranial hemorrhages or abnormalities) Cervical spine without Relevant Findings:: Final report received, EMP independent interpretation of test, Other (No acute subluxation or fracture no further acute abnormal findings) PD Medical Decision Making - ED course ED course: 74-year-old male was brought into the emergency department via police for MEGHANA for concerns that patient was unable to safely care for himself. Labs are complete for further evaluation and he has no electrolyte abnormalities normal electrolytes. Urinalysis is also unremarkable urine drug screen is also unremarkable alcohol level was 260. We completed a head CT for further evaluation as well as a C-spine and no acute fractures or abnormalities were seen. Patient was quite combative and irritated at times we informed him that he was unable to return home unless he had a ride there was 1 point where he swung at myself he is frequently cussing at other patients as well as staff. Please had to be called at some point to help with de-escalation he then became somewhat cooperative but as soon as he left became quite combative and agitated again. He denies any suicidal homicidal ideation I do not see any reason to hospitalize him or keep him after normal workup he was able to get a ride home to his house and there will be people checking on him as soon as he gets there. At this point in time patient is able to walk without any difficulty free to discharge if he would like. Departure - Departure Disposition: 01 Home, Self Care Clinical Impression: Alcohol intoxication Instructions: ED Alcohol Intoxication Comments: You have been brought into the emergency department by the police because of your public display of alcohol intoxication. I would strongly encourage you to speak with someone about getting this under control and consider not drinking alcohol anymore. If completed the head and neck CT which were found to be unremarkable also known as they are normal as well as labs and labs are also found to be normal. Your alcohol level was quite elevated again please strongly consider quitting drinking. Forms: PCP List Discharge Date/Time: 03/22/24 20:15
[2024-03-22 16:25] LABS: BASOPHILS % (AUTO) 0.5 %; EOSINOPHILS % (AUTO) 0.3 %; HCT - HEMATOCRIT 44.2 % (42.0-52.0); HGB - HEMOGLOBIN 14.2 g/dL (14.0-18.0); LYMPHOCYTES % (AUTO) 30.6 %; MEAN CORPUSCULAR HEMOGLOBIN 29.3 pg (27.0-31.0); MEAN CORPUSCULAR HGB CONC 32.1 g/dL (32.0-36.0); MEAN CORPUSCULAR VOLUME 91.3 fL (80.0-94.0); MEAN PLATELET VOLUME 9.8 fL (7.4-11.4); MONOCYTES # (AUTO) 0.6 10^3/uL (0.0-1.0); NEUTROPHILS # (AUTO) 3.8 10^3/uL (1.5-6.6); NEUTROPHILS % (AUTO) 59.3 %; PLT - PLATELET COUNT 293 10^3/uL (130-450); RED BLOOD COUNT 4.84 10^6/uL (4.70-6.10); RED CELL DISTRIBUTION WIDTH 12.8 % (12.0-15.0); WHITE BLOOD COUNT 6.4 x10^3/uL (4.8-10.8)
[2024-03-22 16:38] LABS: BILIRUBIN,URINE NEGATIVE (NEGATIVE); GLUCOSE, URINE (UA) NEGATIVE (NEGATIVE); KETONES,URINE (UA) NEGATIVE (NEGATIVE); LEUKOCYTE ESTERASE, URINE NEGATIVE (NEGATIVE); NITRITE,URINE NEGATIVE (NEGATIVE); OCCULT BLOOD,URINE NEGATIVE (NEGATIVE); PH,URINE 5.5 PH (5.0-7.5); PROTEIN,URINE NEGATIVE (NEGATIVE); UROBILINOGEN,URINE 0.2 (NORMAL) E.U./dL (NORMAL)
[2024-03-22 16:51] LABS: AMPHETAMINE SCREEN,URINE NEGATIVE (NEGATIVE); BARBITURATE SCREEN,UR NEGATIVE (NEGATIVE); BENZODIAZEPINES SCREEN, URINE NEGATIVE (NEGATIVE); BUPRENORPHINE SCREEN, URINE NEGATIVE (NEGATIVE); CLARITY,URINE CLEAR (CLEAR); COCAINE SCREEN URINE NEGATIVE (NEGATIVE); METHADONE SCREEN, URINE NEGATIVE (NEGATIVE); METHAMPHETAMINES SCREEN, URINE NEGATIVE (NEGATIVE); OPIATE SCREEN, URINE NEGATIVE (NEGATIVE); OXYCODONE SCREEN, URINE NEGATIVE (NEGATIVE); THC CANNABINOID SCREEN, URINE NEGATIVE (NEGATIVE); TRICYCLIC ANTIDEPRESSANT,URINE NEGATIVE (NEGATIVE)
[2024-03-22 16:55] LABS: THYROID STIMULATING HORMONE 0.44 uIU/mL (0.34-5.60)
[2024-03-22 17:00] LABS: ACETAMINOPHEN 0.2 ug/mL; ALBUMIN 4.5 g/dL (3.2-5.5); ALBUMIN/GLOBULIN RATIO 1.2 (1.0-2.2); ALKALINE PHOSPHATASE 110 IU/L (42-121); ALT ALANINE AMINOTRANSFERASE 43 IU/L (10-60); AST ASPARTATE AMINOTRANSFERASE 33 IU/L (10-42); BILIRUBIN,TOTAL 0.5 mg/dL (0.2-1.0); BUN - BLOOD UREA NITROGEN 16 mg/dL (6-20); CALCIUM 10.3 mg/dL (8.5-10.3); CARBON DIOXIDE - CO2 22 mmol/L (21-32); CHLORIDE 101 mmol/L (101-111); CK- CREATINE KINASE 125 IU/L (30-223); CREATININE 0.9 mg/dL (0.6-1.3); GFR - MDRD 83 (>89); GLUCOSE 102 mg/dL (74-104); LIPASE 22 U/L (11-82); MAGNESIUM 1.9 mg/dL (1.7-2.3); SODIUM 136 mmol/L (135-145); TOTAL PROTEIN 8.4 g/dL (6.4-8.9)
[2024-03-22 17:04] LABS: SALICYLATE < 1.5 mg/dL
[2024-03-22] MEDS: SODIUM CHLORIDE 0.9% 1,000 ML IV ONE (17:25)
--- NOTE | 2024-03-22 18:43 | CT Report ---
PROCEDURE: Head WO INDICATIONS: GLF, ETOH use TECHNIQUE: Noncontrast 4.5 mm thick angled axial sections acquired from the foramen magnum to the vertex. For r adiation dose reduction, the following was used: automated exposure control, adjustment of mA and/or kV according to patient size. COMPARISON: None. FINDINGS: Image quality: Excellent. CSF spaces: Basal cisterns are patent. No extra-axial fluid collections. Ventricles are normal in size and shape. Brain: No midline shift. No intracranial masses or hemorrhage. Jaffe-white matter interface is norm al. Skull and face: Calvarium and visualized facial bones are intact, without suspicious lesions. Sinuses: Chronic complete opacification of the right maxillary sinus and anterior ethmoid air cells. Otherwise, the paranasal sinuses and mastoid air cells are clear.. IMPRESSION: 1.No acute intracranial pathology. 2.Chronic complete opacification of the right maxillary sinus. Reviewed by: Sebastien Cali MD on 03/22/2024 5:42 PM [facility] Approved by: Sebastien Cali MD on 03/22/2024 5:42 PM [facility] Station ID: [id number]
--- NOTE | 2024-03-22 18:47 | CT Report ---
PROCEDURE: Cervical Spine WO INDICATIONS: GLF TECHNIQUE: Noncontrast 3 mm thick sections acquired from the skull base to the T4 level. Sagittal and coronal r eformats were then constructed. For radiation dose reduction, the following was used: automated exp osure control, adjustment of mA and/or kV according to patient size. COMPARISON: None. FINDINGS: Image quality: Excellent. Bones: No fractures or dislocations. Focal kyphosis centered at C5. Grade I anterolisthesis of C4 o n C5. Mild retrolisthesis of C5 on C6. Multilevel degenerative changes, most pronounced at C5-C6. Vis ualized superior ribs are intact. Soft tissues: Prevertebral soft tissues are normal in thickness. No paravertebral hematomas. No ap ical pneumothoraces. IMPRESSION: Focal kyphosis centered at C5 which is favored to be degenerative in etiology given no widening of th e facet joints and no surrounding edema. Recommend clinical correlation and if there is clinical conc jonas for cervical spine injury, MRI can be obtained for further evaluation. No acute fractures are see n. Reviewed by: Sebastien Cali MD on 03/22/2024 5:46 PM [facility] Approved by: Sebastien Cali MD on 03/22/2024 5:46 PM [facility] Station ID: [id number]
[2024-03-22 20:22] VITALS: BP 138/95; O2SAT 96
== END 2024-03-22 20:15 | disposition home or self-care (01) ==
LOC: EDUNIT# → ED 15:15
DX: S00.01XA Abrasion of scalp, initial encounter (principal); W18.39XA Other fall on same level, initial encounter; Y90.8 Blood alcohol level of 240 mg/100 ml or more; I10 Essential (primary) hypertension; F10.929 Alcohol use, unspecified with intoxication, unspecified
CPT/HCPCS: 36415; 80053; 80143; 80179; 80306; 81001; 81003; 82077; 82550; 83690; 83735; 84443; 85025; 87086; 99284